=== PATIENT | female | born 1930 | race Caucasian/White ===

== ENCOUNTER 2018-03-18 03:16 | Inpatient (IN) | payer OTHER, MEDICARE ==
[~2018-03-18] VITALS: Ht 162.6 cm; Wt 71.7 kg
[2018-03-18] VITALS (18 sets, daily range): BP systolic 81–179; BP diastolic 34–80; PULSE 78–110; RESP 16–22; TEMP 96–99.9; O2SAT 95–100
[~2018-03-18 03:16] MED LIST: CARV3.125 PO; FERR324T4 PO; FURO20 PO; HYDR10TA16 PO; IRON PO; LEVO125T3 PO; MULTIVITAMIN PO; ST J81CH PO; SUCR1TAB; XANA0.5T
--- NOTE | 2018-03-18 03:46 | PD ---
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 Pt was found unresponsive and pulseless and give a total of 2mg of epinephrine and 1 sodium bicarb. ROSC was obtained. Pt was intubated in field. Daughter was at home with her and did not say that pt was DNI or DNR. Unable to obtain further details. 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 ) Musculoskeletal: Yes (CHRONIC BACK PAIN; LEFT HIP PAIN) Neurologic: No Psychiatric: Yes (ANXIETY ) Reproductive: No Respiratory: Yes (COPD; USES OXY AT HOME OCCAS NEEDED ) Thyroid Disease: Yes Tetanus Vaccination: Unknown Influenza Vaccination: No Menopausal: Yes Past Surgical History Surgical History: Unable to Obtain Abdominal Surgery: Yes (GALLBLADDER ) AICD: No Arteriovenous Shunt: No Body Medical Devices: REPLACEMENT OF AORTIC VALVE - BOVINE Cardiac Surgery: Yes (QUADRUPLE BYPASS,AORTIC HEART VALVE) Cholecystectomy: Yes Ear Surgery: No Endocrine Surgery: No Eye Surgery: No Genitourinary Surgery: No Gynecologic Surgery: No Insulin Pump: No Joint Replacement: No Neurologic Surgery: No Oral Surgery: No Pacemaker: No Thoracic Surgery: Yes Other Surgery: Yes (QUADRUPLE BYPASS,HEART VALVE,GALLBLADDER) Social History Tobacco Use: No Substance Use: No Allergies-Medications (Allergen,Severity, Reaction): Coded Allergies: penicillin G (Unverified Allergy, Severe, HIVES, 03/18/18) doxycycline (Unverified Allergy, Mild, Swelling, 03/18/18) lips became swollen and she had to take benedryl to treat the inflammation. minocycline (Unverified Allergy, Mild, Swelling, 03/18/18) lips became swollen and she had to take benedryl to treat the inflammation. tigecycline (Unverified Allergy, Mild, Swelling, 03/18/18) lips became swollen and she had to take benedryl to treat the inflammation. Reported Meds & Prescriptions Reported Meds & Active Scripts Active Reported B Complex (B-Complex Vitamins) 1 Cap 1 Cap PO DAILY Coq-10 (Coenzyme Q10 (Ubidecarenone)) 30 Mg Cap Aspir-Low (Aspirin) 81 Mg Tabdr Multiple Vitamin 1 Tab 1 Tab PO DAILY Vitamin C (Ascorbic Acid) 250 Mg Chew 250 Mg CHEW DAILY Levothyroxine (Levothyroxine Sodium) 75 Mcg Tab 75 Mcg PO DAILY Furosemide 40 Mg Tab 40 Mg PO BID Carvedilol 3.125 Mg Tab 3.125 Mg PO BID Review of Systems ROS Limitations: Unresponsive Physical Exam Narrative GENERAL: 88yo F unresponsive. SKIN: Focused skin assessment warm/dry. HEAD: Atraumatic. Normocephalic. EYES: Pupils equal and round at 2mm and sluggishly reactive. ENT: No nasal bleeding or discharge. Mucous membranes pink and moist. NECK: Trachea midline. No JVD. CARDIOVASCULAR: Regular rate and rhythm. No murmur appreciated. RESPIRATORY: No accessory muscle use. Clear to auscultation. Breath sounds equal bilaterally. GASTROINTESTINAL: Abdomen soft, non-tender, nondistended. MUSCULOSKELETAL: No obvious deformities. No clubbing. No cyanosis. No edema. NEUROLOGICAL: Unresponsive and not on any sedation. Data Data Last Documented VS Vital Signs Date Time Temp Pulse Resp B/P (MAP) Pulse Ox O2 Delivery O2 Flow Rate FiO2 03/18/18 04:13 75 85/54 03/18/18 04:07 16 100 Ventilator 100 03/18/18 03:21 96.0 Orders Orders Complete Blood Count With Diff (03/18/18 03:27) Basic Metabolic Panel (Bmp) (03/18/18 03:27) Magnesium (Mg) (03/18/18 03:27) Prothrombin Time / Inr (Pt) (03/18/18 03:41) Act Partial Throm Time (Ptt) (03/18/18 03:41) Chest, Single Ap (03/18/18 ) Resp Ventilation- Pressure (03/18/18 ) Ct Brain W/O Iv Contrast(Rout) (03/18/18 ) Troponin I (03/18/18 03:45) Norepinephrine-Dextrose Drip (Levophed-D (03/18/18 04:00) Terbutaline Inj (Brethine Inj) (03/18/18 04:00) Ct Pulmonary Angiogram (03/18/18 ) Norepinephrine-Dextrose Drip (Levophed-D (03/18/18 04:15) B-Type Natriuretic Peptide (03/18/18 04:17) Sodium Chlor 0.9% 1000 Ml Inj (Ns 1000 M (03/18/18 04:30) Admit Order (Ed Use Only) (03/18/18 04:33) Labs Laboratory Tests Test 03/18/18 03:45 White Blood Count 6.0 TH/MM3 Red Blood Count 3.10 MIL/MM3 Hemoglobin 9.3 GM/DL Hematocrit 29.9 % Mean Corpuscular Volume 96.5 FL Mean Corpuscular Hemoglobin 30.1 PG Mean Corpuscular Hemoglobin Concent 31.2 % Red Cell Distribution Width 14.5 % Platelet Count 183 TH/MM3 Mean Platelet Volume 8.8 FL Neutrophils (%) (Auto) 68.5 % Lymphocytes (%) (Auto) 21.2 % Monocytes (%) (Auto) 8.5 % Eosinophils (%) (Auto) 1.4 % Basophils (%) (Auto) 0.4 % Neutrophils # (Auto) 4.1 TH/MM3 Lymphocytes # (Auto) 1.3 TH/MM3 Monocytes # (Auto) 0.5 TH/MM3 Eosinophils # (Auto) 0.1 TH/MM3 Basophils # (Auto) 0.0 TH/MM3 CBC Comment AUTO DIFF Differential Total Cells Counted 100 Neutrophils % (Manual) 65 % Band Neutrophils % 3 % Lymphocytes % 16 % Monocytes % 12 % Eosinophils % 3 % Neutrophils # (Manual) 4.1 TH/MM3 Myelocytes 1 % Differential Comment FINAL DIFF MANUAL Platelet Estimate NORMAL Platelet Morphology Comment NORMAL Basophilic Stippling MOD Ovalocytes 1+ Prothrombin Time 11.7 SEC Prothromb Time International Ratio 1.2 RATIO Activated Partial Thromboplast Time 24.4 SEC Blood Urea Nitrogen 20 MG/DL Creatinine 1.21 MG/DL Random Glucose 165 MG/DL Calcium Level 9.1 MG/DL Magnesium Level 2.0 MG/DL Sodium Level 137 MEQ/L Potassium Level 4.2 MEQ/L Chloride Level 90 MEQ/L Carbon Dioxide Level 37.1 MEQ/L Anion Gap 10 MEQ/L Estimat Glomerular Filtration Rate 42 ML/MIN Troponin I 0.44 NG/ML B-Type Natriuretic Peptide 735 PG/ML MDM Medical Decision Making Medical Screen Exam Complete: Yes Emergency Medical Condition: Yes Interpretation(s) EKG: Afib at 94bpm. LAD. RBBB. Differential Diagnosis Massive PE vs. VA vs. hyperkalemia vs. hypokalemia Narrative Course 88yo F s/p PEA arrest. I discussed goals of care with her daughter who is here and her granddaughter who is an ICU nurse on the phone. They both agreed that if pt's heart was to stop, that they do not want CPR. Her granddaughter said she is ok with [address] scans to figure out the cause of the arrest. Labs reviewed, no leukocytosis. H/H low at 9.3/29.9 which is at baseline. Troponin elevated at 0.44. BUN/creatinine elevated at 1.21. BP was going down so given NS IVF and started on norepinephrine. Blood pressure has been stabled. Discussed with Dr. Funes and accepted to his service. Critical Care Narrative Aggregate critical care time was 45 minutes. Time to perform other separately billable procedures was not included in the critical care time. My time did not include minutes spent treating any other patients simultaneously or on activities that did not directly contribute to the patient's treatment. The services I provided to this patient were to treat and/or prevent clinically significant deterioration that could result in: cardiovascular collapse or . I provided critical care services requiring my management, as noted below: Chart data review, documentation time, medication orders and management, vital sign assessments/reviewing monitor data, ordering and reviewing lab tests, ordering and interpreting/reviewing x-rays and diagnostic studies, care of the patient and discussion of the patient with the admitting physicians. Diagnosis Primary Impression: PEA (Pulseless electrical activity) Admitting Information Admitting Physician Requests: Annie Clemente DO Mar 18, 2018 03:46
[2018-03-18 03:55] LABS: AUTOMATED NEUTROPHIL # 4.1 TH/MM3 (1.8-7.7); BASOPHIL % 0.4 % (0.0-2.0); EOSINOPHIL # 0.1 TH/MM3 (0-0.4); EOSINOPHIL % 1.4 % (0.0-4.0); HEMATOCRIT 29.9 % (35.0-46.0); HEMOGLOBIN 9.3 GM/DL (11.6-15.3); LYMPH % 21.2 % (9.0-44.0); LYMPHOCYTE # 1.3 TH/MM3 (1.0-4.8); MEAN CELL VOLUME 96.5 FL (80.0-100.0); MEAN CORPUSCULAR HEMOGLOBIN 30.1 PG (27.0-34.0); MEAN CORPUSCULAR HGB CONC 31.2 % (32.0-36.0); MEAN PLATELET VOLUME 8.8 FL (7.0-11.0); MONO % 8.5 % (0.0-8.0); MONOCYTE # 0.5 TH/MM3 (0-0.9); NEUT % 68.5 % (16.0-70.0); PLATELET COUNT 183 TH/MM3 (150-450); RED CELL DISTRIBUTION WIDTH 14.5 % (11.6-17.2)
[2018-03-18] MEDS ORDERED: TERBUTALINE INJ 1 MG/ML AMP SQ PRN (04:00)
[2018-03-18] MEDS ORDERED: NOREPINEPHRINE-DEXTROSE DRIP 250 ML IV PRN (04:00)
[2018-03-18 04:09] LABS: BICARBONATE 37.1 MEQ/L (21.0-32.0); CALCIUM 9.1 MG/DL (8.5-10.1); CREATININE 1.21 MG/DL (0.50-1.00); INTERNATIONAL NORMALIZED RATIO 1.2 RATIO; PROTHROMBIN TIME - PATIENT 11.7 SEC (9.8-11.6)
--- NOTE | 2018-03-18 04:10 | RADRPT ---
EXAM DATE: 03/18/2018 3:56 AM EDT AGE/SEX: 88 years / Female INDICATIONS: Post intubation. CLINICAL DATA: This is the patient's initial encounter. Patient reports that signs and symptoms have been present for 1 day and indicates a pain score of Nonresponsive. MEDICAL/SURGICAL HISTORY: Non-responsive. CABG. Left hip replacement. COMPARISON: POI, XR CHEST PA AND LAT, 12/31/2015. . FINDINGS: Endotracheal tube in good position. NG enters stomach. Bilateral mostly basilar airspace disease, rig ht greater than left. Cardiomegaly. CONCLUSION: Endotracheal tube and nasogastric tube in good position. Mild basilar airspace disease, right greater than left. Postoperative CABG with cardiomegaly present. Electronically signed by: Mart Glasgow MD 03/18/2018 4:08 AM EDT
[2018-03-18 04:13] LABS: TROPONIN I 0.44 NG/ML (0.02-0.05)
[2018-03-18] MEDS ORDERED: NOREPINEPHRINE 4 MG/D5W 250 ML IV PRN (04:15)
[2018-03-18] MEDS ORDERED: SODIUM CHLOR 0.9% 1000 ML INJ 1,000 ML IV ONE (04:30)
[2018-03-18 04:40] LABS: BANDS 3 % (0-6); LYMPHOCYTES 16 % (9-44); MONOCYTES 12 % (0-8); MYELOCYTES 1 % (0-0); NEUTROPHIL # MANUAL DIFF 4.1 TH/MM3 (1.8-7.7); POLYS (SEG NEUTROPHILS) 65 % (16-70)
[2018-03-18 04:42] LABS: OVALOCYTES 1+ (NORMAL)
--- NOTE | 2018-03-18 04:44 | HHI.HP ---
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 The patient was found unresponsive and pulseless and was given a total of 2mg of epinephrine and 1 sodium bicarb. ROSC was obtained. The patient was intubated in field. The ED attending to communicate with the patient's family and now patient is DNR. Review of Systems ROS Unable to obtain patient sedated and intubated Past Family Social History Allergies: Coded Allergies: penicillin G (Unverified Allergy, Severe, HIVES, 03/18/18) doxycycline (Unverified Allergy, Mild, Swelling, 03/18/18) lips became swollen and she had to take benedryl to treat the inflammation. minocycline (Unverified Allergy, Mild, Swelling, 03/18/18) lips became swollen and she had to take benedryl to treat the inflammation. tigecycline (Unverified Allergy, Mild, Swelling, 03/18/18) lips became swollen and she had to take benedryl to treat the inflammation. 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 CHF Anxiety CAD status post IN and CABG Hypertension Hypothyroidism Past Surgical History Hip replacement CABG Reported Medications Reported Meds & Active Scripts Active Active Prescriptions or Reported Medications Unobtainable Active Ordered Medications Current Medications Medications (Trade) Dose Ordered Sig/Hayder Route PRN Reason Start Time Stop Time Status Last Admin Dose Admin Terbutaline Sulfate (Brethine Inj) 1 mg UNSCH PRN SQ For Extravasation 03/18/18 04:00 Norepinephrine Bitartrate 250 ml @ 7.5 mls/hr TITRATE PRN IV Maintain MAP > 65 mmHg 03/18/18 04:15 03/18/18 04:13 Sodium Chloride 1,000 ml @ 999 mls/hr BOLUS ONCE IV 03/18/18 04:30 03/18/18 05:30 03/18/18 04:31 Sodium Chloride 1,000 ml @ 84 mls/hr [id number] IV 03/18/18 04:31 Sodium Chloride (NS Flush) 2 ml UNSCH PRN IV FLUSH FLUSH AFTER USING IV ACCESS 03/18/18 04:45 Sodium Chloride (NS Flush) 2 ml BID IV FLUSH 03/18/18 09:00 Acetaminophen (Tylenol) 650 mg Q6H PRN PO PAIN 1-5 AND/OR FEVER >101F 03/18/18 04:45 Morphine Sulfate (Morphine Inj) 2 mg Q2H PRN IV PUSH PAIN SCALE 6 TO 10 03/18/18 04:45 Famotidine (Pepcid Inj) 20 mg Q12HR IV PUSH 03/18/18 09:00 Midazolam HCl (Versed Inj) 2 mg Q1H PRN IV PUSH SEDATION 03/18/18 04:45 Artificial Tears (Tears Naturale Opth Soln) 1 drop TID EACH EYE 03/18/18 09:00 UNV Ondansetron HCl (Zofran Inj) 4 mg Q6H PRN IV PUSH NAUSEA OR VOMITING 03/18/18 04:45 UNV Albuterol/ Ipratropium (Duoneb Neb) 1 ampule Q2HR NEB PRN INH WHEEZING 03/18/18 04:45 UNV Heparin Sodium (Porcine) (Heparin Inj) 5,000 units Q8H SQ 03/18/18 05:00 Miscellaneous Information ([facility] [place] [facility]) 1 [id number] XX 03/18/18 04:45 Chlorhexidine Gluconate (Chlorhexidine 2% Cloth) 3 pack Taper DAILY@04 TOP 03/19/18 04:00 03/15/19 03:59 Chlorhexidine Gluconate (Chlorhexidine 2% Cloth) 3 pack UNSCH PRN TOP HYGIENIC CARE 03/18/18 04:45 Senna/Docusate Sodium (Hawa-Colace) 1 tab BID PO 03/18/18 09:00 Magnesium Hydroxide (Milk Of Magnesia Liq) 30 ml Q12H PRN PO Mild constipation 03/18/18 04:45 Sennosides (Senokot) 17.2 mg Q12H PRN PO Moderate constipation 03/18/18 04:45 Bisacodyl (Dulcolax Supp) 10 mg DAILY PRN RECTAL SEVERE CONSITIPATION/ IF NPO 03/18/18 04:45 Lactulose (Lactulose Liq) 30 ml DAILY PRN PO SEVERE CONSITIPATION/ IF PO 03/18/18 04:45 Chlorhexidine Gluconate (Peridex 0.12% Liq) 15 ml BID@08,20 MT 03/18/18 08:00 Propofol 100 ml @ 1.95 mls/hr TITRATE PRN IV SEDATION 03/18/18 04:45 Family History Unobtainable Social History Unobtainable Physical Exam Vital Signs Vital Signs Date Time Temp Pulse Resp B/P (MAP) Pulse Ox O2 Delivery O2 Flow Rate FiO2 03/18/18 04:36 78 16 131/63 (85) 100 Ventilator 100 03/18/18 04:13 75 85/54 03/18/18 04:07 79 16 84/45 (58) 100 Ventilator 100 03/18/18 03:54 81/34 (50) 03/18/18 03:48 102 16 100 Ventilator 100 03/18/18 03:30 101 16 90/55 (67) 100 Ventilator 100 03/18/18 03:24 100 03/18/18 03:21 96.0 89 18 132/80 (97) 97 Ventilator 100 03/18/18 03:15 100 100 Physical Exam GENERAL: Elderly female sedated and intubated SKIN: Warm and dry. HEAD: Normocephalic. EYES: No scleral icterus. No injection or drainage. NECK: Supple, trachea midline. No JVD or lymphadenopathy. CARDIOVASCULAR: Regular rate and rhythm without murmurs, gallops, or rubs. RESPIRATORY: Breath sounds equal bilaterally. No accessory muscle use. GASTROINTESTINAL: Abdomen soft, non-tender, nondistended. MUSCULOSKELETAL: No cyanosis, or edema. BACK: Nontender without obvious deformity. NEURO EXAM: Patient is unresponsive and mechanically ventilated. Laboratory Laboratory Tests Test 03/18/18 03:45 White Blood Count 6.0 Red Blood Count 3.10 Hemoglobin 9.3 Hematocrit 29.9 Mean Corpuscular Volume 96.5 Mean Corpuscular Hemoglobin 30.1 Mean Corpuscular Hemoglobin Concent 31.2 Red Cell Distribution Width 14.5 Platelet Count 183 Mean Platelet Volume 8.8 Neutrophils (%) (Auto) 68.5 Lymphocytes (%) (Auto) 21.2 Monocytes (%) (Auto) 8.5 Eosinophils (%) (Auto) 1.4 Basophils (%) (Auto) 0.4 Neutrophils # (Auto) 4.1 Lymphocytes # (Auto) 1.3 Monocytes # (Auto) 0.5 Eosinophils # (Auto) 0.1 Basophils # (Auto) 0.0 CBC Comment AUTO DIFF Differential Total Cells Counted 100 Neutrophils % (Manual) 65 Band Neutrophils % 3 Lymphocytes % 16 Monocytes % 12 Eosinophils % 3 Neutrophils # (Manual) 4.1 Myelocytes 1 Differential Comment FINAL DIFF MANUAL Platelet Estimate NORMAL Platelet Morphology Comment NORMAL Basophilic Stippling MOD Ovalocytes 1+ Prothrombin Time 11.7 Prothromb Time International Ratio 1.2 Activated Partial Thromboplast Time 24.4 Blood Urea Nitrogen 20 Creatinine 1.21 Random Glucose 165 Calcium Level 9.1 Magnesium Level 2.0 Sodium Level 137 Potassium Level 4.2 Chloride Level 90 Carbon Dioxide Level 37.1 Anion Gap 10 Estimat Glomerular Filtration Rate 42 Troponin I 0.44 Result Diagram: 03/18/18 0345 03/18/18 0345 Imaging Last 24 hours Impressions Chest X-Ray 03/18/18 0000 Signed Impressions: CONCLUSION: Endotracheal tube and nasogastric tube in good position. Mild basilar airspace disease, right greater than left. Postoperative CABG with cardiomegaly present. Caprini VTE Risk Assessment Caprini VTE Risk Assessment: Mod/High Risk (score >= 2) Caprini Risk Assessment Model Point Value = 1 Point Value = 2 Point Value = 3 Point Value = 5 Age 41-60 Minor surgery BMI > 25 kg/m2 Swollen legs Varicose veins or History of unexplained or recurrent spontaneous Oral contraceptives or hormone replacement Sepsis (< 1 month) Serious lung disease, including pneumonia (< 1 month) Abnormal pulmonary function Acute myocardial infarction Congestive heart failure (< 1 month) History of inflammatory bowel disease Medical patient at bed rest Age 61-74 Arthroscopic surgery Major open surgery (> 45 min) Laparoscopic surgery (> 45 min) Malignancy Confined to bed (> 72 hours) Immobilizing plaster cast Central venous access Age >= 75 History of VTE Family history of VTE Factor V Leiden Prothrombin [id number] Lupus anticoagulant Anticardiolipin antibodies Elevated serum homocysteine Heparin-induced thrombocytopenia Other congenital or acquired thrombophilia Stroke (< 1 month) Elective arthroplasty Hip, pelvis, or leg fracture Acute spinal cord injury (< 1 month) Prophylaxis Regimen Total Risk Factor Score Risk Level Prophylaxis Regimen 0-1 Low Early ambulation 2 Moderate Order ONE of the following: *Sequential Compression Device (SCD) *Heparin 5000 units SQ BID 3-4 Higher Order ONE of the following medications: *Heparin 5000 units SQ TID *Enoxaparin/Lovenox 40 mg SQ daily (WT < 150 kg, CrCl > 30 mL/min) *Enoxaparin/Lovenox 30 mg SQ daily (WT < 150 kg, CrCl > 10-29 mL/min) *Enoxaparin/Lovenox 30 mg SQ BID (WT < 150 kg, CrCl > 30 mL/min) AND/OR *Sequential Compression Device (SCD) 5 or more Highest Order ONE of the following medications: *Heparin 5000 units SQ TID (Preferred with Epidurals) *Enoxaparin/Lovenox 40 mg SQ daily (WT < 150 kg, CrCl > 30 mL/min) *Enoxaparin/Lovenox 30 mg SQ daily (WT < 150 kg, CrCl > 10-29 mL/min) *Enoxaparin/Lovenox 30 mg SQ BID (WT < 150 kg, CrCl > 30 mL/min) AND *Sequential Compression Device (SCD) Assessment and Plan Assessment and Plan Respiratory failure -Intubated for airway protection -No weaning until neurologically improved -Vent bundle -DuoNeb scheduled and as needed Cardiac arrest -DNR/not a candidate for hypothermia protocol -Series of troponins and EKG -Supportive care Hypertension -Hold home meds due to borderline blood pressure -Resume when indicated Acute kidney injury -Delgado in place. -Monitor intake and output. -Monitor electrolytes and replace as indicated. Chronic iron deficiency anemia -Monitor H&H -Transfuse for hemoglobin less than 7 Hypothyroidism -Continue Synthroid 75 mg p.o. daily DVT GI prophylaxis -Dean's and SCDs -Subcu heparin -Pepcid Critical Care: The total critical care time was 35 minutes. Time to perform other separately billable procedures was not included in the critical care time. Adebayo Funes MD Mar 18, 2018 4:44 am
[2018-03-18] MEDS ORDERED: RESP: ALBUTEROL 2.5 MG/IPRATROPIUM 0.5 MG NEB (PRN) INH (04:45)
[2018-03-18] MEDS ORDERED: ONDANSETRON ODT 4 MG TAB PO PRN (04:45)
[2018-03-18] MEDS ORDERED: ACETAMINOPHEN 325 MG TAB PO PRN (04:45)
[2018-03-18] MEDS ORDERED: MAGNESIUM HYDROXIDE SUSP 30 ML CUP PO PRN (04:45)
[2018-03-18] MEDS ORDERED: BISACODYL 10 MG SUPP RECTAL PRN (04:45)
[2018-03-18] MEDS ORDERED: NURSING INFORMATION XX SCH (04:45)
[2018-03-18] MEDS ORDERED: MORPHINE SULFATE 4 MG/ML INJ IV PUSH PRN (04:45)
[2018-03-18] MEDS ORDERED: CHLORHEXIDINE GLUCONATE 2 % 1 PACK (2 CLOTHS) TOP PRN (04:45)
[2018-03-18] MEDS ORDERED: SODIUM CHLORIDE 0.9% FLUSH 10 ML FLUSH IV FLUSH PRN (04:45)
[2018-03-18] MEDS ORDERED: LACTULOSE SYRUP 20 GM/30 ML CUP PO PRN (04:45)
[2018-03-18] MEDS ORDERED: SENNOSIDES 8.6 MG TAB PO PRN (04:45)
[2018-03-18] MEDS ORDERED: MIDAZOLAM HCL 2 MG/2 ML VIAL IV PUSH PRN (04:45)
[2018-03-18] MEDS ORDERED: CARV3.12 PO (04:52)
[2018-03-18] MEDS ORDERED: LEVO75TA3 PO (04:52)
[2018-03-18] MEDS ORDERED: LEVO125T4 PO (04:52)
[2018-03-18] MEDS ORDERED: FURO40TA PO (04:52)
[2018-03-18] MEDS ORDERED: VITACAP7 PO (04:54)
[2018-03-18] MEDS ORDERED: VITA250C3 CHEW (04:54)
[2018-03-18] MEDS ORDERED: ASPI81TA19 (04:54)
[2018-03-18] MEDS ORDERED: MULTTAB67 PO (04:54)
[2018-03-18] MEDS ORDERED: COQ-30CA2 (04:54)
[2018-03-18] MEDS: SODIUM CHLOR 0.9% 1000 ML INJ 1,000 ML IV SCH ×2 (05:15→16:26)
[2018-03-18] MEDS: HEPARIN SODIUM - SQ 10,000 UNITS/ML VIAL SQ SCH ×3 (05:15→21:57)
[2018-03-18] MEDS: PROPOFOL 1000 MG/100 ML INJ 100 ML IV PRN ×2 (05:27→21:58)
[2018-03-18 06:09] LABS: BACTERIA, URINE RARE /hpf; BILIRUBIN, URINE NEG (NEG); BLOOD, URINE NEG (NEG); GLUCOSE,URINE NEG (NEG); HYALINE CAST, URINE 10 /lpf (RARE); KETONE, URINE NEG (NEG); MUCUS URINE FEW /lpf (OCC); NITRITE,URINE NEG (NEG); PH, URINE 5.5 (5.0-8.5); SQUAMOUS EPITHELIAL CELL URINE <1 /hpf (0-5); URINE COLOR YELLOW (YELLW/STRAW); URINE LEUKOCYTE ESTERASE NEG (NEG)
[2018-03-18] MEDS ORDERED: IOHEXOL 350 MG/ML 10 ML VIAL (for RAD DIAG) IVCONTRAST ONE (06:29)
--- NOTE | 2018-03-18 06:48 | RADRPT ---
EXAM DATE: 03/18/2018 6:26 AM EDT AGE/SEX: 88 years / Female INDICATIONS: Altered mental status; post code. CLINICAL DATA: This is the patient's initial encounter. Patient reports that signs and symptoms have been present for 1 day and indicates a pain score of Nonresponsive. MEDICAL/SURGICAL HISTORY: Chronic obstructive pulmonary disease. Congestive heart failure. Renal disease. Anemia CABG. Cholecystectomy. Valve replacement RADIATION DOSE: 56.35 CTDI (mGy) COMPARISON: No prior exams available for comparison. TECHNIQUE: CT of the head without contrast. Using automated exposure control and adjustment of the mA and/or kV according to patient size, radiation dose was kept as low as reasonably achievable to ob tain optimal diagnostic quality images. FINDINGS: Cerebrum: The ventricles are normal for age. No evidence of midline shift, mass lesion, hemorrhage or acute infarction. No extraaxial fluid collections are seen. Posterior Fossa: The cerebellum and brainstem are intact. The 4th ventricle is midline. The cerebe llopontine angle is unremarkable. Extracranial: The visualized portion of the orbits is intact. There is opacification of the right ma xillary sinus. Skull: The calvaria is intact. No evidence of skull fracture. CONCLUSION: 1. No acute intracranial abnormality. Right maxillary sinus opacification. Electronically signed by: Mart Glasgow MD 03/18/2018 6:47 AM EDT
--- NOTE | 2018-03-18 06:54 | RADRPT ---
EXAM DATE: 03/18/2018 6:33 AM EDT AGE/SEX: 88 years / Female INDICATIONS: Post code; rule out pulmonary embolus. CLINICAL DATA: This is the patient's initial encounter. Patient reports that signs and symptoms have been present for 1 day and indicates a pain score of Nonresponsive. MEDICAL/SURGICAL HISTORY: Chronic obstructive pulmonary disease. Congestive heart failure. Renal disease. Anemia CABG. Cholecystectomy. Valve replacement RADIATION DOSE: 15.66 CTDI (mGy) COMPARISON: C, CHEST SINGLE AP, 03/18/2018. . TECHNIQUE: Volumetric scanning was performed using a multi-row detector CT scanner during bolus infu ross of 60 ml Omnipaque 350 (iohexol) nonionic water-soluble contrast as a single exam dose. The don a was post processed with a variety of visualization algorithms including full volume maximum intensi ty projection and sliding thin slab reformation. Using automated exposure control and adjustment of the mA and/or kV according to patient size, radiation dose was kept as low as reasonably achievable t o obtain optimal diagnostic quality images. FINDINGS: No filling defects to suggest pulmonary embolic disease. There is a small right-sided pleural effusio n no significant left effusion. There is mild emphysema. Subsegmental airspace disease present at the lung bases most characteristic of atelectasis. Borderline enlarged mediastinal lymph nodes. Severe coronary artery calcifications. Heart size mildly enlarged. No acute findings in the upper abdomen. Mild anasarca. Previous proximal left humerus frac ture. CONCLUSION: 1. Negative for pulmonary embolus. 2. Endotracheal tube tip just above the gurwinder. NG enters stomach. 3. Small right effusion and trace left pleural fluid with subsegmental atelectasis in both lungs. Mi ld emphysema. 4. Severe coronary calcifications. Electronically signed by: Mart Glasgow MD 03/18/2018 6:52 AM EDT
[2018-03-18] MEDS: SODIUM CHLORIDE 0.9% FLUSH 10 ML FLUSH IV FLUSH SCH ×2 (09:00→21:56)
[2018-03-18] MEDS ORDERED: RESP: ALBUTEROL 2.5 MG/3 ML NEB (PRN) NEB (09:15)
--- NOTE | 2018-03-18 09:19 | HHI.CCPN ---
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 The patient was found unresponsive and pulseless and was given a total of 2mg of epinephrine and 1 sodium bicarb. ROSC was obtained. The patient was intubated in field. The ED attending to communicate with the patient's family and now patient is DNR. Subjective: 03/18 Daughter states patient has been going downhill since fractured left arm in December. She has been admitted to [facility] times since then with hyponatremia and delirium and then most recently admitted with CHF ~ 1month ago. She has been living at home in an apartment but her family has been taking turns staying with her and they have also hired [employer] and had PT and home health coming. She began declining since with intermittent confusion and difficulty breathing. She began crying out for help saying that she could not breath. A neighbor who is a nurse came and noted she had a faint pulse and then lost a pulse and she became unresponsive. Bystander CPR was not initiated. She was pulseless with EVAC arrived and CPR was initiated. She has an advanced directive that limits measures that prolong dying process in setting of vegetative state, end stage condition, terminal condition. At this time, family does not have Healthcare surrogate form but they are trying to find it. No living spouse. She has 5 children. Daughter states her quality of life has been poor since December, good long-term memory, difficulty with short- term memory. She is CO2 retainer, suspect hypercapneic respiratory failure was etiology of arrest. Brainstem reflexes are intact but no purposeful motor activity. Objective Vital Signs Date Time Temp Pulse Resp B/P (MAP) Pulse Ox O2 Delivery O2 Flow Rate FiO2 03/18/18 06:10 100 100 03/18/18 05:57 03/18/18 05:39 80 16 Ventilator 03/18/18 03:21 96.0 Result Diagram: 03/18/18 0345 03/18/18 0345 Other Results Laboratory Tests Test 03/18/18 08:20 Blood Gas Puncture Site LT RADIAL Blood Gas Patient Temperature 98.6 Blood Gas HCO3 41 mmol/L (22-26) Blood Gas Base Excess 16.1 mmol/L (-2-2) Blood Gas Oxygen Saturation 97 % (90-100) Arterial Blood pH 7.46 (7.380-7.420) Arterial Blood Partial Pressure CO2 58 mmHg (38-42) Arterial Blood Partial Pressure O2 175 mmHg (61-120) Arterial Blood Oxygen Content 12.1 Vol % (12.0-20.0) Arterial Blood Carboxyhemoglobin 1.4 % (0-4) Arterial Blood Methemoglobin 1.2 % (0-2) Blood Gas Hemoglobin 8.6 G/DL (12.0-16.0) Oxygen Delivery Device VENTILATOR Blood Gas Ventilator Setting [facility]/AC500/16 Blood Gas Inspired Oxygen 50 % Imaging Last 24 hours Impressions Chest X-Ray 03/18/18 0000 Signed Impressions: CONCLUSION: Endotracheal tube and nasogastric tube in good position. Mild basilar airspace disease, right greater than left. Postoperative CABG with cardiomegaly present. Objective Remarks GENERAL: Elderly female intubate. SKIN: Warm and dry. HEAD: Normocephalic. EYES: No scleral icterus. No injection or drainage. NECK: Supple, trachea midline. No JVD or lymphadenopathy. CARDIOVASCULAR: irregularly irregular, rate 90s without murmurs, gallops, or rubs. RESPIRATORY: Breath sounds equal bilaterally. No accessory muscle use. GASTROINTESTINAL: Abdomen soft, non-tender, nondistended. Bowel sound present. MUSCULOSKELETAL: No cyanosis, 1+ bipedal edema. NEURO EXAM: Pupils pinpoint and sluggishly reactive bilaterally. Corneal reflexes intact. Oculocephalic reflexes intact, positive gag, positive cough, spontaneous respirations. Babinski is upgoing and she has a flexor response to noxious stimuli of BLE. No motor response to deep central noxious stimuli. A/P Assessment and Plan NEURO: Acute encephalopathy, possible anoxia CT brain no acute abnormality RESP: Acute hypercapnic respiratory failure Emphysema Intubated 03/18. Ventilator bundle DuoNeb every 4 hours. Albuterol every 2 hours as needed CV: PEA cardiac arrest Right bundle branch block Left anterior fascicular block Chronic systolic heart failure Coronary artery disease with prior CABG Atrial fibrillation Serial EKG and cardiac markers Continue aspirin 81 mg daily Not requiring vasopressors. Now hypertensive. Hydralazine as needed. GI: OG tube in place FEN/RENAL: Acute kidney injury Delgado in place. Monitor intake and output. Monitor elect lites. Replace as indicated. ID: No leukocytosis or fever. Follow-up urine culture Levaquin 500 mg daily in view of COPD exacerbation. HEME: Chronic iron deficiency anemia MSK: Proximal left humerus fracture; subacute ENDO: Hypothyroidism Continue Synthroid 75 mg p.o. daily PROPH: SCDs for DVT prophylaxis. Heparin subcu for DVT prophylaxis. Famotidine for stress ulcer prophylaxis ACCESS: Peripheral IV providing adequate access at this time Met with family and reviewed advanced directives with them. Multiple questions answered. Amanda Mansfield MD Mar 18, 2018 09:19
[2018-03-18] MEDS: hydrALAZINE HCL 20 MG/ML VIAL IV PUSH PRN ×2 (09:44→18:32)
[2018-03-18] MEDS: LEVOTHYROXINE SODIUM 75 MCG TAB PO SCH (09:44)
[2018-03-18] MEDS: ASPIRIN 81 MG CHEW TAB OG-TUBE SCH (09:44)
[2018-03-18] MEDS: FAMOTIDINE 20 MG/2 ML VIAL IV PUSH SCH ×2 (09:44→21:57)
[2018-03-18] MEDS: DOCUSATE SODIUM 50 MG/SENNA 8.6 MG TAB PO SCH ×2 (09:44→21:57)
[2018-03-18] MEDS: CHLORHEXIDINE 0.12% (ORAL KIT) 15 ML CUP MT SCH ×2 (09:50→21:56)
[2018-03-18] MEDS: ARTIFICIAL TEARS OPTH SOLN 15 ML BTL EACH EYE SCH ×3 (09:50→17:51)
[2018-03-18] MEDS ORDERED: LEVOFLOXACIN 500 MG PREMIX INJ 100 ML IV ONE (10:00)
[2018-03-18] MEDS: RESP: ALBUTEROL 2.5 MG/IPRATROPIUM 0.5 MG NEB (SCH) NEB ×3 (10:41→21:00)
--- NOTE | 2018-03-18 14:41 | EKG ---
Date Performed: 03/18/2018 Time Performed: 11:12:04 PTAGE: 88 years EKG: ATRIAL FIBRILLATION WITH ABERRANT CONDUCTION OR VENTRICULAR PREMATURE COMPLEXES MARKED LEFT AXIS DEVIATION ABNORMAL ECG PREVIOUS TRACING : 03/18/2018 03.19 Since the previous tracing, no significant change noted DOCTOR: Jovani Boss Interpretating Date/Time 03/18/2018 14:39:41
--- NOTE | 2018-03-18 14:52 | EKG ---
Date Performed: 03/18/2018 Time Performed: 03:19:46 PTAGE: 88 years EKG: ATRIAL FIBRILLATION RIGHT BUNDLE BRANCH BLOCK LEFT ANTERIOR FASCICULAR BLOCK ABNORMAL ECG PREVIOUS TRACING : 01/24/2012 09.27 COMPARED WITH PREVIOUS EKG VENTRICULAR PACEMAKER RHYTHM IS NO LONGER PRESENT DOCTOR: Jovani Boss Interpretating Date/Time 03/18/2018 14:51:59
[2018-03-19] VITALS (19 sets, daily range): BP systolic 127–179; BP diastolic 61–79; PULSE 90–114; RESP 16–22; TEMP 98–99; O2SAT 95–100
[2018-03-19] MEDS: RESP: ALBUTEROL 2.5 MG/IPRATROPIUM 0.5 MG NEB (SCH) NEB ×7 (00:10→23:51)
[2018-03-19] MEDS: CHLORHEXIDINE GLUCONATE 2 % 1 PACK (2 CLOTHS) TOP SCH (04:00)
[2018-03-19] MEDS: HEPARIN SODIUM - SQ 10,000 UNITS/ML VIAL SQ SCH ×3 (04:16→21:46)
[2018-03-19] MEDS: PROPOFOL 1000 MG/100 ML INJ 100 ML IV PRN (04:16)
[2018-03-19 04:20] LABS: AUTOMATED NEUTROPHIL # 5.1 TH/MM3 (1.8-7.7); BASOPHIL % 0.3 % (0.0-2.0); HEMATOCRIT 24.8 % (35.0-46.0); HEMOGLOBIN 8.1 GM/DL (11.6-15.3); LYMPH % 10.3 % (9.0-44.0); LYMPHOCYTE # 0.7 TH/MM3 (1.0-4.8); MEAN CELL VOLUME 92.4 FL (80.0-100.0); MEAN CORPUSCULAR HEMOGLOBIN 30.2 PG (27.0-34.0); MEAN CORPUSCULAR HGB CONC 32.7 % (32.0-36.0); MEAN PLATELET VOLUME 8.7 FL (7.0-11.0); MONO % 17.2 % (0.0-8.0); MONOCYTE # 1.2 TH/MM3 (0-0.9); NEUT % 72.2 % (16.0-70.0); PLATELET COUNT 152 TH/MM3 (150-450); RED BLOOD COUNT 2.68 MIL/MM3 (4.00-5.30); RED CELL DISTRIBUTION WIDTH 14.5 % (11.6-17.2); WHITE BLOOD COUNT 7.1 TH/MM3 (4.0-11.0)
[2018-03-19] MEDS: SODIUM CHLOR 0.9% 1000 ML INJ 1,000 ML IV SCH ×2 (04:21→21:08)
[2018-03-19 04:38] LABS: INTERNATIONAL NORMALIZED RATIO 1.3 RATIO; PROTHROMBIN TIME - PATIENT 13.1 SEC (9.8-11.6)
[2018-03-19] MEDS: LEVOTHYROXINE SODIUM 75 MCG TAB PO SCH (04:48)
[2018-03-19 04:50] LABS: ALBUMIN 2.7 GM/DL (3.4-5.0); AST (GOT) 37 U/L (15-37); BICARBONATE 34.2 MEQ/L (21.0-32.0); BLOOD UREA NITROGEN 24 MG/DL (7-18); CALCIUM 8.5 MG/DL (8.5-10.1); CHLORIDE 97 MEQ/L (98-107); CREATININE 1.27 MG/DL (0.50-1.00); GLOMERULAR FILTRATION RATE 40 ML/MIN (>89); GLUCOSE,RANDOM 84 MG/DL (74-106); MAGNESIUM 1.6 MG/DL (1.5-2.5); SODIUM (NA) 141 MEQ/L (136-145)
[2018-03-19 04:53] LABS: ALKALINE PHOSPHATASE 76 U/L (45-117); ALT (GPT) 28 U/L (10-53); PHOSPHORUS 1.9 MG/DL (2.5-4.9); TOTAL BILIRUBIN ADULT 0.6 MG/DL (0.2-1.0)
[2018-03-19] MEDS: hydrALAZINE HCL 20 MG/ML VIAL IV PUSH PRN ×2 (05:44→22:55)
[2018-03-19] MEDS ORDERED: POTASSIUM CHLOR 20 MEQ PREMIX 100 ML IV PRN (07:00)
[2018-03-19] MEDS ORDERED: SODIUM PHOSPHATE INJ 30 MMOL in SODIUM CHLOR 0.9% 250 ML INJ 240 ML IV PRN (07:00)
[2018-03-19] MEDS ORDERED: POTASSIUM CHLOR 40 MEQ PREMIX 100 ML IV PRN ×2 (07:00)
[2018-03-19] MEDS ORDERED: POTASSIUM PHOSPHATE INJ 30 MMOL in SODIUM CHLOR 0.9% 250 ML INJ 250 ML IV PRN (07:00)
[2018-03-19] MEDS ORDERED: MAGNESIUM SULFATE INJ 2 GM in SODIUM CHLORIDE 0.9% INJ 96 ML IV PRN (07:00)
[2018-03-19] MEDS ORDERED: POTASSIUM CHLORIDE 25 MEQ EFFERVESCENT TAB PO PRN (07:00)
[2018-03-19] MEDS ORDERED: MAGNESIUM OXIDE 400 MG TAB PO PRN (07:00)
[2018-03-19] MEDS ORDERED: MAGNESIUM SULFATE INJ 4 GM in SODIUM CHLORIDE 0.9% INJ 92 ML IV PRN (07:00)
[2018-03-19] MEDS ORDERED: POTASSIUM PHOSPHATE MONOBASIC 500 MG TAB PO/TUBE PRN (07:00)
[2018-03-19] MEDS ORDERED: POTASSIUM CHLORIDE 25 MEQ EFFERVESCENT TAB OG-TUBE ONE (07:00)
[2018-03-19] MEDS ORDERED: POTASSIUM PHOSPHATE MONOBASIC 500 MG TAB PO PRN (07:00)
[2018-03-19] MEDS: ASPIRIN 81 MG CHEW TAB OG-TUBE SCH (09:02)
[2018-03-19] MEDS: DOCUSATE SODIUM 50 MG/SENNA 8.6 MG TAB PO SCH ×2 (09:02→21:46)
[2018-03-19] MEDS: LEVOFLOXACIN 250 MG PREMIX INJ 50 ML IV SCH (09:03)
[2018-03-19] MEDS: FAMOTIDINE 20 MG/2 ML VIAL IV PUSH SCH ×2 (09:03→21:46)
[2018-03-19] MEDS: SODIUM CHLORIDE 0.9% FLUSH 10 ML FLUSH IV FLUSH SCH ×2 (09:03→21:47)
[2018-03-19] MEDS: CHLORHEXIDINE 0.12% (ORAL KIT) 15 ML CUP MT SCH ×2 (09:08→20:00)
[2018-03-19] MEDS: ARTIFICIAL TEARS OPTH SOLN 15 ML BTL EACH EYE SCH ×3 (09:09→17:27)
--- NOTE | 2018-03-19 09:22 | HHI.CCPN ---
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 The patient was found unresponsive and pulseless and was given a total of 2mg of epinephrine and 1 sodium bicarb. ROSC was obtained. The patient was intubated in field. The ED attending to communicate with the patient's family and now patient is DNR. 03/18 Daughter states patient has been going downhill since fractured left arm in December. She has been admitted to [facility] times since then with hyponatremia and delirium and then most recently admitted with CHF ~ 1month ago. She has been living at home in an apartment but her family has been taking turns staying with her and they have also hired [employer] and had PT and home health coming. She began declining since with intermittent confusion and difficulty breathing. She began crying out for help saying that she could not breath. A neighbor who is a nurse came and noted she had a faint pulse and then lost a pulse and she became unresponsive. Bystander CPR was not initiated. She was pulseless with EVAC arrived and CPR was initiated. She has an advanced directive that limits measures that prolong dying process in setting of vegetative state, end stage condition, terminal condition. At this time, family does not have Healthcare surrogate form but they are trying to find it. No living spouse. She has 5 children. Daughter states her quality of life has been poor since December, good long-term memory, difficulty with short- term memory. She is CO2 retainer, suspect hypercapneic respiratory failure was etiology of arrest. Brainstem reflexes are intact but no purposeful motor activity. Subjective: 03/19 Suspect patient was developing progressive CO2 retention at home as a side effect of aggressive diuresis for advanced heart failure. Multiple hospitalizations in the last few months demonstrate trajectory of decline. 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 Discussed condition in detail with daughter and granddaughter and multiple questions answered. They would like to convene multiple family members for me to convey this information "so they all can hear it". Granddaughter will try to help assemble family members for some time today however if unable to convene today, will meet with palliative care tomorrow. Family has requested input of neurology as well, though her cardiopulmonary status plays just as significant role in prognosis. Objective Vital Signs Date Time Temp Pulse Resp B/P (MAP) Pulse Ox O2 Delivery O2 Flow Rate FiO2 03/19/18 08:30 97 35 03/19/18 06:00 105 03/19/18 04:00 99.0 22 127/61 (83) 03/18/18 05:39 Ventilator Intake and Output 03/19/18 03/19/18 03/20/18 08:00 16:00 00:00 Intake Total 1100 ml Output Total 250 ml Balance 850 ml Result Diagram: 03/19/18 0322 03/19/18 0322 Imaging Last 24 hours Impressions Chest X-Ray 03/18/18 0000 Signed Impressions: CONCLUSION: Endotracheal tube and nasogastric tube in good position. Mild basilar airspace disease, right greater than left. Postoperative CABG with cardiomegaly present. Objective Remarks GENERAL: Elderly frail-appearing female who is intubated. SKIN: Warm and dry. HEAD: Normocephalic. EYES: No scleral icterus. No injection or drainage. NECK: Supple, trachea midline. CARDIOVASCULAR: irregularly irregular, rate 90s without murmurs, gallops, or rubs. RESPIRATORY: Breath sounds distant bilaterally. No wheezes or rales no accessory muscle use. GASTROINTESTINAL: Abdomen soft, non-tender, nondistended. Bowel sound present. MUSCULOSKELETAL: No cyanosis, 1+ bipedal edema. NEURO EXAM: Pupils pinpoint and sluggishly reactive bilaterally. Corneal reflexes intact. Oculocephalic reflexes intact, positive gag, positive cough, spontaneous respirations. Babinski is upgoing and she has a flexor response to noxious stimuli of BLE. No motor response to deep central noxious stimuli. A/P Assessment and Plan Anoxic encephalopathy Has been on propofol for vent synchrony. Sedation vacation for neuro assessment Consult neurology as family specific request their input regarding neurologic prognosis EEG pending Acute hypercapnic respiratory failure Emphysema COPD Prior tobacco abuse -Intubated for airway protection -Mental status precludes extubation. -Vent bundle -DuoNeb scheduled and as needed Levaquin 500 mg IV daily for coverage of atypical/community-acquired organisms insetting severe COPD exacerbation PEA cardiac arrest, suspect it was secondary to COPD exacerbation with hypercapnic respiratory failure Chronic systolic heart failure Coronary artery disease with prior CABG NSTEMI Atrial fibrillation -DNR/not a candidate for hypothermia protocol -Series of troponins and EKG -ASA 81 mg daily. Off levophed -Metoprolol 12.5 bid. Acute kidney injury -Delgado in place. -Monitor intake and output. -Monitor electrolytes and replace as indicated. Chronic iron deficiency anemia -Monitor H&H -Transfuse for hemoglobin less than 7 Hypothyroidism -Continue Synthroid 75 mg p.o. daily DVT GI prophylaxis -Dean's and SCDs -Subcu heparin -Pepcid Level 3 follow-up Amanda Mansfield MD Mar 19, 2018 09:22
--- NOTE | 2018-03-19 15:33 | MB ---
cc: Wayne Washburn MD, PhD DATE: 03/19/2018 REASON FOR CONSULTATION: Anoxic encephalopathy. HISTORY OF PRESENT ILLNESS: Ms. Cevallos is an 88-year-old female status post cardiac arrest after she was found unresponsive early in the morning. She has not been responsive. There has been no seizure activity. No tonic-clonic activity. CURRENT MEDICATIONS: 1. Pepcid. 2. Potassium chloride. 3. Magnesium oxide. 4. Albuterol nebulizer. 5. Synthroid. 6. [place]a-Colace. 7. Aspirin. 8. Apresoline. 9. Subcutaneous heparin. 10.Morphine p.r.n. NEUROLOGIC: Blood pressure is 133/72, pulse is 90, respirations 16, temperature 98 degrees. Higher cortical function: She is nonresponsive to verbal stimulation. Does not follow commands. Pupils are 2 mm and reactive. Extraocular movements are intact. She has sustained upgaze. MOTOR EXAM: There is no withdrawal, no posturing. Reflexes are symmetric. IMAGING: CT brain unremarkable. LABORATORY DATA: The white count is 7100, hemoglobin 8.1, hematocrit 24.8%, platelet count 152,000. PT 13.1, INR 1.38, PTT 28.5. Sodium is 141, potassium 3.4, chloride 97, CO2 of 34.2. The BUN is 24, creatinine 1.27, GFR is 40, glucose 84. IMPRESSION: Severe anoxic encephalopathy. Prognosis is guarded. RECOMMENDATIONS: We will obtain an EEG, which will be helpful prognostically. Wayne Washburn MD, PhD PING/TL , 02:39 PM , 03:32 PM
[2018-03-19] MEDS: NYSTATIN 100,000 U/GM PWD 15 GM BTL TOPICAL SCH ×2 (17:27→21:55)
[2018-03-19] MEDS ORDERED: METOPROLOL TARTRATE 25 MG TAB PO SCH (21:30)
[2018-03-20] VITALS (13 sets, daily range): BP systolic 155–176; BP diastolic 70–84; PULSE 91–108; RESP 16; TEMP 98.9–99.4; O2SAT 78–98
[2018-03-20] MEDS: CHLORHEXIDINE GLUCONATE 2 % 1 PACK (2 CLOTHS) TOP SCH (03:23)
[2018-03-20] MEDS: hydrALAZINE HCL 20 MG/ML VIAL IV PUSH PRN ×2 (03:24→09:04)
[2018-03-20] MEDS: RESP: ALBUTEROL 2.5 MG/IPRATROPIUM 0.5 MG NEB (SCH) NEB ×3 (03:26→11:37)
[2018-03-20] MEDS: SODIUM CHLOR 0.9% 1000 ML INJ 1,000 ML IV SCH (04:11)
[2018-03-20] MEDS: HEPARIN SODIUM - SQ 10,000 UNITS/ML VIAL SQ SCH ×2 (05:36→12:53)
[2018-03-20] MEDS: LEVOTHYROXINE SODIUM 75 MCG TAB PO SCH (05:36)
[2018-03-20 07:40] LABS: AUTOMATED NEUTROPHIL # 6.7 TH/MM3 (1.8-7.7); BASOPHIL % 0.2 % (0.0-2.0); EOSINOPHIL % 0.4 % (0.0-4.0); HEMATOCRIT 25.6 % (35.0-46.0); HEMOGLOBIN 8.4 GM/DL (11.6-15.3); LYMPH % 6.5 % (9.0-44.0); LYMPHOCYTE # 0.5 TH/MM3 (1.0-4.8); MEAN CELL VOLUME 92.4 FL (80.0-100.0); MEAN CORPUSCULAR HEMOGLOBIN 30.2 PG (27.0-34.0); MEAN CORPUSCULAR HGB CONC 32.7 % (32.0-36.0); MEAN PLATELET VOLUME 8.8 FL (7.0-11.0); MONO % 11.6 % (0.0-8.0); NEUT % 81.3 % (16.0-70.0); PLATELET COUNT 145 TH/MM3 (150-450); RED BLOOD COUNT 2.78 MIL/MM3 (4.00-5.30); WHITE BLOOD COUNT 8.3 TH/MM3 (4.0-11.0)
[2018-03-20] MEDS ORDERED: GLUCAGON 1 MG/ML VIAL OTHER PRN (08:00)
[2018-03-20] MEDS: INSULIN NovoLIN REGULAR SUPPLEMENTAL SCALE SQ SCH ×2 (08:00→14:00)
[2018-03-20] MEDS: PROPOFOL 1000 MG/100 ML INJ 100 ML IV PRN (08:00)
[2018-03-20] MEDS ORDERED: DEXTROSE 50% IN WATER 50 ML VIAL(D50) IV PUSH PRN (08:00)
--- NOTE | 2018-03-20 08:15 | HHI.CCPN ---
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 The patient was found unresponsive and pulseless and was given a total of 2mg of epinephrine and 1 sodium bicarb. ROSC was obtained. The patient was intubated in field. The ED attending to communicate with the patient's family and now patient is DNR. 03/18 Daughter states patient has been going downhill since fractured left arm in December. She has been admitted to [facility] 3 times since then with hyponatremia and delirium and then most recently admitted with CHF ~ 1month ago. She has been living at home in an apartment but her family has been taking turns staying with her and they have also hired [employer] and had PT and home health coming. She began declining since with intermittent confusion and difficulty breathing. She began crying out for help saying that she could not breath. A neighbor who is a nurse came and noted she had a faint pulse and then lost a pulse and she became unresponsive. Bystander CPR was not initiated. She was pulseless with EVAC arrived and CPR was initiated. She has an advanced directive that limits measures that prolong dying process in setting of vegetative state, end stage condition, terminal condition. At this time, family does not have Healthcare surrogate form but they are trying to find it. No living spouse. She has 5 children. Daughter states her quality of life has been poor since December, good long-term memory, difficulty with short- term memory. She is CO2 retainer, suspect hypercapneic respiratory failure was etiology of arrest. Brainstem reflexes are intact but no purposeful motor activity. Subjective: 03/19 Suspect patient was developing progressive CO2 retention at home as a side effect of aggressive diuresis for advanced heart failure. Multiple hospitalizations in the last few months demonstrate trajectory of decline. 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 Discussed condition in detail with daughter and granddaughter and multiple questions answered. They would like to convene multiple family members for me to convey this information "so they all can hear it". Granddaughter will try to help assemble family members for some time today however if unable to convene today, will meet with palliative care tomorrow. Family has requested input of neurology as well, though her cardiopulmonary status plays just as significant role in prognosis. 03/20 Patient is sedated with Diprivan and intubated. Afebrile. Objective Vital Signs Date Time Temp Pulse Resp B/P (MAP) Pulse Ox O2 Delivery O2 Flow Rate FiO2 03/20/18 06:00 93 03/20/18 04:29 96 35 03/20/18 04:00 98.9 16 155/76 (102) 03/18/18 05:39 Ventilator Intake and Output 03/20/18 03/20/18 03/21/18 08:00 16:00 00:00 Intake Total 60 ml Output Total 450 ml Balance -390 ml Result Diagram: 03/20/18 0637 03/19/18 0322 Other Results Laboratory Tests Test 03/20/18 06:37 White Blood Count 8.3 TH/MM3 Red Blood Count 2.78 MIL/MM3 Hemoglobin 8.4 GM/DL Hematocrit 25.6 % Mean Corpuscular Volume 92.4 FL Mean Corpuscular Hemoglobin 30.2 PG Mean Corpuscular Hemoglobin Concent 32.7 % Red Cell Distribution Width 15.0 % Platelet Count 145 TH/MM3 Mean Platelet Volume 8.8 FL Neutrophils (%) (Auto) 81.3 % Lymphocytes (%) (Auto) 6.5 % Monocytes (%) (Auto) 11.6 % Eosinophils (%) (Auto) 0.4 % Basophils (%) (Auto) 0.2 % Neutrophils # (Auto) 6.7 TH/MM3 Lymphocytes # (Auto) 0.5 TH/MM3 Monocytes # (Auto) 1.0 TH/MM3 Eosinophils # (Auto) 0.0 TH/MM3 Basophils # (Auto) 0.0 TH/MM3 CBC Comment DIFF FINAL Differential Comment Imaging Last Impressions Head CT 03/18/18 Signed Impressions: CONCLUSION: 1. No acute intracranial abnormality. Right maxillary sinus opacification. Chest X-Ray 03/18/18 Signed Impressions: CONCLUSION: Endotracheal tube and nasogastric tube in good position. Mild basilar airspace disease, right greater than left. Postoperative CABG with cardiomegaly present. CT Angiography 03/18/18 Signed Impressions: CONCLUSION: 1. Negative for pulmonary embolus. 2. Endotracheal tube tip just above the gurwinder. NG enters stomach. 3. Small right effusion and trace left pleural fluid with subsegmental atelect asis in both lungs. Mild emphysema. 4. Severe coronary calcifications. Objective Remarks GENERAL: Elderly frail-appearing female who is intubated. SKIN: Warm and dry. HEAD: Normocephalic. EYES: No scleral icterus. No injection or drainage. NECK: Supple, trachea midline. CARDIOVASCULAR: irregularly irregular, rate 90s without murmurs, gallops, or rubs. RESPIRATORY: Breath sounds distant bilaterally. No wheezes or rales no accessory muscle use. GASTROINTESTINAL: Abdomen soft, non-tender, nondistended. Bowel sound present. MUSCULOSKELETAL: No cyanosis, 1+ bipedal edema. NEURO EXAM: Pupils pinpoint and sluggishly reactive bilaterally. Corneal reflexes intact. Oculocephalic reflexes intact, positive gag, positive cough, spontaneous respirations. Babinski is upgoing and she has a flexor response to noxious stimuli of BLE. No motor response to deep central noxious stimuli. A/P Assessment and Plan Neuro: Anoxic encephalopathy Monitor neuro status. On Diprivan infusion for sedation. Daily sedation vacation. Neuro is following- Dr. Washburn Follow up on EEG Pulm: Acute hypercapnic respiratory failure Emphysema COPD Prior tobacco abuse Continue with vent support keep sats >92% -Intubated for airway protection -Mental status precludes extubation. -Vent bundle -DuoNeb scheduled and as needed Levaquin 500 mg IV daily for coverage of atypical/community-acquired organisms insetting severe COPD exacerbation CV: PEA cardiac arrest, suspect it was secondary to COPD exacerbation with hypercapnic respiratory failure Chronic systolic heart failure Coronary artery disease with prior CABG NSTEMI Atrial fibrillation -DNR/not a candidate for hypothermia protocol -Monitor HR and BP keep MAP>65mmHg -ASA 81 mg daily, increase Metoprolol 25mg bid. : Mild Acute kidney injury Cr:1.27 yesterday, UOP: 450ml in 12 hrs. On NS@84ml/hr Monitor renal function, I/O's, electrolytes replacement as needed. Avoid nephrotoxins GI: Start tube feeds-Glucerna 1.5 with goal rate 50ml/hr On Pepcid 10mg IV Q12 ID: Continue with abx ( Levaquin)monitor for signs of infections ( Fever, WBC) Endo: SSI to maintain Euglycemia On Synthroid mcg daily Heme: Chronic iron deficiency anemia -Monitor CBC Hypothyroidism -Continue Synthroid 75 mg p.o. daily DVT GI prophylaxis -Dean's and SCDs -Subcu heparin -Pepcid Palliative care met with family and they elected to withdrawal life support and transition to comfort care. Level 3 follow-up Justin Zapien MD Mar 20, 2018 08:15
[2018-03-20 08:18] LABS: BICARBONATE 28.6 MEQ/L (21.0-32.0); CALCIUM 8.4 MG/DL (8.5-10.1); CREATININE 1.07 MG/DL (0.50-1.00)
[2018-03-20] MEDS ORDERED: METOPROLOL TARTRATE 25 MG TAB PO SCH (09:00)
[2018-03-20] MEDS: FAMOTIDINE 20 MG/2 ML VIAL IV PUSH SCH (09:01)
[2018-03-20] MEDS: POTASSIUM CHLOR 20 MEQ PREMIX 100 ML IV PRN ×4 (09:01→14:59)
[2018-03-20] MEDS: DOCUSATE SODIUM 50 MG/SENNA 8.6 MG TAB PO SCH (09:02)
[2018-03-20] MEDS: LEVOFLOXACIN 250 MG PREMIX INJ 50 ML IV SCH (09:02)
[2018-03-20] MEDS: ASPIRIN 81 MG CHEW TAB OG-TUBE SCH (09:02)
[2018-03-20] MEDS: NYSTATIN 100,000 U/GM PWD 15 GM BTL TOPICAL SCH (09:03)
[2018-03-20] MEDS: CHLORHEXIDINE 0.12% (ORAL KIT) 15 ML CUP MT SCH (09:03)
[2018-03-20] MEDS: ARTIFICIAL TEARS OPTH SOLN 15 ML BTL EACH EYE SCH ×2 (09:04→12:53)
[2018-03-20] MEDS: SODIUM CHLORIDE 0.9% FLUSH 10 ML FLUSH IV FLUSH SCH (09:04)
--- NOTE | 2018-03-20 10:15 | PD.CONS ---
Consult Service Palliative Care . Consult Requested By Dr. Mansfield . Primary Care Physician Unknown . Reason for Consultation a. To assist with evaluation and management of symptoms including: dyspnea, pain. b. To assist medical decision maker(s) with: better understanding of current medical conditions; weighing benefits/burdens of medical treatment options; making medical treatment decisions. . HPI History of Present Illness Ms. 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 Patient has had 3 acute care hospitalizations since December at [facility]. Most recent hospitalization patient was admitted with CHF exacerbation. Patient was brought to [facility] emergency department via [facility] after being found unresponsive on 03/18/18. Upon EMS arrival patient was unresponsive, pulseless in PEA arrest. Patient was given 2 mg of epinephrine and 1 sodium bicarb with return of spontaneous circulation. Patient was intubated in the field. Upon arrival to the emergency department: * VS: Temp 96, pulse 75, respirations 16, BP 85/54 * WBC 6.0, hemoglobin 9.3, hematocrit 29.9, platelet count 183, neutrophil 68.5% * PT 11.7, INR 1.2, PTT 24.4 * BUN 20, creatinine 1.21, glucose 165, calcium 9.1, magnesium 2.0, sodium 137, potassium 4.2, chloride 90, carbon dioxide 37.1, GFR 42 * Troponin 0.44 * BNP 735 * EKG-atrial fibrillation, right bundle branch block, left anterior fascicular block * CT head -no acute intracranial abnormality, right maxillary sinus opacification. * CXR -mild basilar airspace disease, right greater than left, postoperative CABG with cardiomegaly. * CTA -negative for pulmonary embolus, small right effusion and trace left liver fluid with subsegmental atelectasis in both lungs, mild emphysema, severe coronary artery calcifications. * Urinalysis -positive urine bacteria, mucus and protein, no growth in 48 hours. Patient was admitted to ICU post PEA arrest on mechanical ventilation. Family elected DNR status. Neurology was consulted at family's request for further prognostication. Dr. Washburn, neurology was consulted for severe anoxic encephalopathy. EEG ordered, results pending. Palliative care is consulted to assist with further clarification of treatment goals. . Function/Cognitive Trajectory Family reports significant trajectory of decline since patient fractured left arm in December. Patient has been living at home in an apartment but family takes turns staying with her, they also have a hired PEDIATRIC ONCOLOGIST. Home health with PT has also recently been visiting the patient. . Review of Systems ROS Limitations: Intubated, Unresponsive Constitutional: COMPLAINS OF: Fatigue, Change in appetite, Generalized weakness Eyes: COMPLAINS OF: Blurred vision (wears glasses) Ears, nose, mouth, throat: COMPLAINS OF: Hearing loss Respiratory: COMPLAINS OF: Shortness of breath Cardiovascular: COMPLAINS OF: Dyspnea on Exertion Genitourinary: DENIES: Abnormal vaginal bleeding, Dysmenorrhea, Dyspareunia, Sexual dysfunction, Urinary frequency, Urinary incontinence, Urgency, Hematuria , Dysuria, Nocturia, Vaginal discharge, Hesitancy, Dribbling, Decreased stream Musculoskeletal: COMPLAINS OF: Joint pain Hematologic/Lymphatics: COMPLAINS OF: Bruising Neurologic: COMPLAINS OF: Poor Balance Psychiatric: COMPLAINS OF: Anxiety Other ROS: ROS per family report. Past Family Social History Coded Allergies: penicillin G (Unverified Allergy, Severe, HIVES, 03/18/18) doxycycline (Unverified Allergy, Mild, Swelling, 03/18/18) lips became swollen and she had to take benedryl to treat the inflammation. minocycline (Unverified Allergy, Mild, Swelling, 03/18/18) lips became swollen and she had to take benedryl to treat the inflammation. tigecycline (Unverified Allergy, Mild, Swelling, 03/18/18) lips became swollen and she had to take benedryl to treat the inflammation. 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 Past Surgical History Hip replacement CABG . Reported Medications Reported Meds & Active Scripts Active Reported B Complex (B-Complex Vitamins) 1 Cap 1 Cap PO DAILY Coq-10 (Coenzyme Q10 (Ubidecarenone)) 30 Mg Cap Aspir-Low (Aspirin) 81 Mg Tabdr Multiple Vitamin 1 Tab 1 Tab PO DAILY Vitamin C (Ascorbic Acid) 250 Mg Chew 250 Mg CHEW DAILY Levothyroxine (Levothyroxine Sodium) 75 Mcg Tab 75 Mcg PO DAILY Furosemide 40 Mg Tab 40 Mg PO BID Carvedilol 3.125 Mg Tab 3.125 Mg PO BID . Current Medications Medications (Trade) Dose Ordered Sig/Hayder Route Start Time Stop Time Status Last Admin (Brethine Inj) 1 mg UNSCH PRN SQ 03/18/18 04:00 Norepinephrine Bitartrate 250 ml @ 7.5 mls/hr TITRATE PRN IV 03/18/18 04:15 03/18/18 04:13 Sodium Chloride 1,000 ml @ 84 mls/hr [id number] IV 03/18/18 04:31 03/20/18 04:11 (NS Flush) 2 ml UNSCH PRN IV FLUSH 03/18/18 04:45 03/20/18 09:04 (NS Flush) 2 ml BID IV FLUSH 03/18/18 09:00 03/20/18 09:04 (Tylenol) 650 mg Q6H PRN PO 03/18/18 04:45 03/18/18 21:57 (Morphine Inj) 2 mg Q2H PRN IV PUSH 03/18/18 04:45 (Versed Inj) 2 mg Q1H PRN IV PUSH 03/18/18 04:45 03/18/18 04:57 (Tears Naturale Opth Soln) 1 drop TID EACH EYE 03/18/18 09:00 03/20/18 09:04 (Zofran Odt) 4 mg Q6H PRN PO 03/18/18 04:45 (Heparin Inj) 5,000 units Q8H SQ 03/18/18 05:00 03/20/18 05:36 ([place] Nursing Information) 1 [id number] XX 03/18/18 04:45 03/18/18 04:45 (Chlorhexidine 2% Cloth) 3 pack Taper DAILY@04 TOP 03/19/18 04:00 03/15/19 03:59 03/20/18 03:23 (Chlorhexidine 2% Cloth) 3 pack UNSCH PRN TOP 03/18/18 04:45 (Hawa-Colace) 1 tab BID PO 03/18/18 09:00 03/20/18 09:02 (Milk Of Magnesia Liq) 30 ml Q12H PRN PO 03/18/18 04:45 (Senokot) 17.2 mg Q12H PRN PO 03/18/18 04:45 (Dulcolax Supp) 10 mg DAILY PRN RECTAL 03/18/18 04:45 (Lactulose Liq) 30 ml DAILY PRN PO 03/18/18 04:45 (Peridex 0.12% Liq) 15 ml BID@08,20 MT 03/18/18 08:00 03/20/18 09:03 Propofol 100 ml @ 1.95 mls/hr TITRATE PRN IV 03/18/18 04:45 03/20/18 08:00 (Synthroid) 75 mcg DAILY@0600 PO 03/18/18 09:00 03/20/18 05:36 (Aspirin Chew) 81 mg DAILY OG-TUBE 03/18/18 09:00 03/20/18 09:02 (Apresoline Inj) 10 mg Q4H PRN IV PUSH 03/18/18 08:15 03/20/18 09:04 (Duoneb Neb) 1 ampule Q4HR NEB NEB 03/18/18 12:00 03/20/18 07:55 (Albuterol Neb) 2.5 mg Q2HR NEB PRN NEB 03/18/18 09:15 Levofloxacin/ Dextrose 50 ml @ 100 mls/hr Q24H IV 03/19/18 10:00 03/20/18 09:02 Potassium Chloride 100 ml @ 50 mls/hr Q2H PRN IV 03/19/18 07:00 Potassium Chloride 100 ml @ 50 mls/hr Q2H PRN IV 03/19/18 07:00 03/20/18 09:01 (K-Lyte Cl Eff) 50 meq UNSCH PRN PO 03/19/18 07:00 Potassium Chloride 100 ml @ 25 mls/hr UNSCH PRN IV 03/19/18 07:00 Potassium Chloride 100 ml @ 50 mls/hr Q2H PRN IV 03/19/18 07:00 Magnesium Sulfate 4 gm/Sodium Chloride 100 ml @ 50 mls/hr UNSCH PRN IV 03/19/18 07:00 (Mag-Ox) 800 mg UNSCH PRN PO 03/19/18 07:00 Magnesium Sulfate 2 gm/Sodium Chloride 100 ml @ 50 mls/hr UNSCH PRN IV 03/19/18 07:00 (K-Phos) 2,000 mg Q4H PRN PO 03/19/18 07:00 Sodium Phosphate 30 mmol/Sodium Chloride 250 ml @ 42 mls/hr UNSCH PRN IV 03/19/18 07:00 (K-Phos) 2,000 mg UNSCH PRN PO/TUBE 03/19/18 07:00 Potassium Phosphate 30 mmol/ Sodium Chloride 260 ml @ 42 mls/hr UNSCH PRN IV 03/19/18 07:00 (Pepcid Inj) 10 mg Q12HR IV PUSH 03/19/18 21:00 03/20/18 09:01 (Mycostatin Powder) 1 applic Q12HR TOPICAL 03/19/18 10:00 03/20/18 09:03 (Lopressor) 25 mg Q12HR PO 03/20/18 09:00 03/20/18 09:02 (D50w (Vial) Inj) 50 ml UNSCH PRN IV PUSH 03/20/18 08:00 (Glucagon Inj) 1 mg UNSCH PRN OTHER 03/20/18 08:00 (NovoLIN R SUPPLEMENTAL SCALE) 1 Q6H SQ 03/20/18 08:00 Family History Mother 101 dementia. Father age 76 CHF. 1 daughter of breast cancer age 49. 1 daughter of stomach cancer in 46. . Substance Use Tobacco:unknown. Alcohol: none. Prescription med abuse: none. Illicits: none. . Psychosocial History Single. Had 1 son and 6 daughters. 2 daughters . Spiritual/Cultural Factors Orthodoxy riya. . Living Will: Copy in medical record Health Care Surrogate: Copy in medical record Health Care Surrogate(s): Patient is not capacitated to make her own health care decisions, will not regain capacity due to anoxic brain injury. Designated [facility] son, Alex Cross and micheal Holly. Documented care wishes: Standard living will. . Today's verbally stated goals: Patient is not capacitated to make her own health care decisions, will not regain capacity due to anoxic brain injury. Family/friends goals: Family elected to transition to comfort measures with withdrawal of life support. . Ethical and Legal Issues Patient is not capacitated to make her own health care decisions, will not regain capacity due to anoxic brain injury. Designated [facility] darek, Alex Cross and micheal Holly. Physical Exam Vital Signs Date Time Temp Pulse Resp B/P (MAP) Pulse Ox O2 Delivery O2 Flow Rate FiO2 03/20/18 07:55 98 35 03/20/18 06:00 93 03/20/18 04:29 96 35 03/20/18 04:00 98.9 101 16 155/76 (102) 94 03/20/18 04:00 35 03/20/18 04:00 101 03/20/18 02:00 94 03/20/18 00:00 35 03/20/18 00:00 99.2 98 16 158/70 (99) 95 03/20/18 00:00 98 03/19/18 23:51 97 35 03/19/18 22:00 105 03/19/18 20:00 35 03/19/18 20:00 98.6 107 16 179/79 (112) 95 03/19/18 20:00 107 03/19/18 19:45 98 35 03/19/18 18:00 104 03/19/18 16:01 97 35 03/19/18 16:00 106 03/19/18 16:00 35 03/19/18 16:00 98.7 106 16 140/71 (94) 95 03/19/18 14:00 106 03/19/18 12:00 35 03/19/18 12:00 104 03/19/18 12:00 98.9 104 16 158/67 (97) 96 03/19/18 11:58 95 35 03/19/18 10:00 98 Exam CONSTITUTIONAL/GENERAL: This is an elderly, critically ill patient, in no apparent distress. TUBES/LINES/DRAINS: ETT, OG, PIV, bilateral soft wrist restraints, Delgado, SCDs. SKIN: No jaundice, rashes, or lesions. Ecchymoses on upper and lower extremities. No wounds seen anteriorly. Skin temperature appropriate. Not diaphoretic. HEAD: Atraumatic. Normocephalic. EYES: Pupils pinpoint, sluggish. ENT: Hard of Hearing. Nose without bleeding or purulent drainage. Throat difficult to visualize due to tubes. NECK: Trachea midline. Supple, nontender. CARDIOVASCULAR: irregularly irregular. RESPIRATORY/CHEST: Diminished breath sounds. GASTROINTESTINAL: Abdomen soft, non-tender, nondistended. No hepato-splenomegaly , or palpable masses. No guarding. Bowel sounds present. GENITOURINARY: Without palpable bladder distension. Delgado catheter in place. MUSCULOSKELETAL: Extremities with edema. No mottling or clubbing. LYMPHATICS: No palpable cervical or supraclavicular adenopathy. NEUROLOGICAL: Unresponsive. Eyes open, Does not blink to threat. Slight withdraw to noxious stimuli bilateral LEs. No other response to pain. + cough and gag. PSYCHIATRIC: Unresponsive. . Diagnostic Tests Laboratory Laboratory Tests Test 03/18/18 03:45 03/18/18 05:37 03/18/18 07:00 03/18/18 08:20 White Blood Count 6.0 TH/MM3 (4.0-11.0) Red Blood Count 3.10 MIL/MM3 (4.00-5.30) Hemoglobin 9.3 GM/DL (11.6-15.3) Hematocrit 29.9 % (35.0-46.0) Mean Corpuscular Volume 96.5 FL (80.0-100.0) Mean Corpuscular Hemoglobin 30.1 PG (27.0-34.0) Mean Corpuscular Hemoglobin Concent 31.2 % (32.0-36.0) Red Cell Distribution Width 14.5 % (11.6-17.2) Platelet Count 183 TH/MM3 (150-450) Mean Platelet Volume 8.8 FL (7.0-11.0) Neutrophils (%) (Auto) 68.5 % (16.0-70.0) Lymphocytes (%) (Auto) 21.2 % (9.0-44.0) Monocytes (%) (Auto) 8.5 % (0.0-8.0) Eosinophils (%) (Auto) 1.4 % (0.0-4.0) Basophils (%) (Auto) 0.4 % (0.0-2.0) Neutrophils # (Auto) 4.1 TH/MM3 (1.8-7.7) Lymphocytes # (Auto) 1.3 TH/MM3 (1.0-4.8) Monocytes # (Auto) 0.5 TH/MM3 (0-0.9) Eosinophils # (Auto) 0.1 TH/MM3 (0-0.4) Basophils # (Auto) 0.0 TH/MM3 (0-0.2) CBC Comment AUTO DIFF Differential Total Cells Counted 100 Neutrophils % (Manual) 65 % (16-70) Band Neutrophils % 3 % (0-6) Lymphocytes % 16 % (9-44) Monocytes % 12 % (0-8) Eosinophils % 3 % (0-4) Neutrophils # (Manual) 4.1 TH/MM3 (1.8-7.7) Myelocytes 1 % (0-0) Differential Comment FINAL DIFF MANUAL Platelet Estimate NORMAL (NORMAL) Platelet Morphology Comment NORMAL (NORMAL) Basophilic Stippling MOD (NORMAL) Ovalocytes 1+ (NORMAL) Prothrombin Time 11.7 SEC (9.8-11.6) Prothromb Time International Ratio 1.2 RATIO Activated Partial Thromboplast Time 24.4 SEC (24.3-30.1) Blood Urea Nitrogen 20 MG/DL (7-18) Creatinine 1.21 MG/DL (0.50-1.00) Random Glucose 165 MG/DL (74-106) Calcium Level 9.1 MG/DL (8.5-10.1) Magnesium Level 2.0 MG/DL (1.5-2.5) Sodium Level 137 MEQ/L (136-145) Potassium Level 4.2 MEQ/L (3.5-5.1) Chloride Level 90 MEQ/L (98-107) Carbon Dioxide Level 37.1 MEQ/L (21.0-32.0) Anion Gap 10 MEQ/L (5-15) Estimat Glomerular Filtration Rate 42 ML/MIN (>89) Troponin I 0.44 NG/ML (0.02-0.05) B-Type Natriuretic Peptide 735 PG/ML (0-100) Urine Color YELLOW (YELLW/STRAW) Urine Turbidity CLEAR (CLEAR) Urine pH 5.5 (5.0-8.5) Urine Specific [place] 1.013 (1.002-1.035) Urine Protein 30 mg/dL (NEG-TRACE) Urine Glucose (UA) NEG mg/dL (NEG) Urine Ketones NEG mg/dL (NEG) Urine Occult Blood NEG (NEG) Urine Nitrite NEG (NEG) Urine Bilirubin NEG (NEG) Urine Urobilinogen LESS THAN 2.0 MG/DL (LESS Urine Leukocyte Esterase NEG (NEG) Urine RBC 1 /hpf (0-3) Urine WBC 5 /hpf (0-5) Urine Squamous Epithelial Cells <1 /hpf (0-5) Urine Bacteria RARE /hpf (NONE) Urine Hyaline Casts 10 /lpf (RARE) Urine Mucus FEW /lpf (OCC) Microscopic Urinalysis Comment CATH-CULTURE IND Nasal Screen MRSA (PCR) MRSA DETECTED (NOT DETECT) Blood Gas Puncture Site LT RADIAL Blood Gas Patient Temperature 98.6 Blood Gas HCO3 41 mmol/L (22-26) Blood Gas Base Excess 16.1 mmol/L (-2-2) Blood Gas Oxygen Saturation 97 % (90-100) Arterial Blood pH 7.46 (7.380-7.420) Arterial Blood Partial Pressure CO2 58 mmHg (38-42) Arterial Blood Partial Pressure O2 175 mmHg (61-120) Arterial Blood Oxygen Content 12.1 Vol % (12.0-20.0) Arterial Blood Carboxyhemoglobin 1.4 % (0-4) Arterial Blood Methemoglobin 1.2 % (0-2) Blood Gas Hemoglobin 8.6 G/DL (12.0-16.0) Oxygen Delivery Device VENTILATOR Blood Gas Ventilator Setting [facility]/AC500/16 Blood Gas Inspired Oxygen 50 % Test 03/18/18 10:21 03/18/18 10:52 03/18/18 15:58 03/19/18 03:22 Nasal Screen MRSA (PCR) MRSA DETECTED (NOT DETECT) Troponin I 2.00 NG/ML (0.02-0.05) 1.81 NG/ML (0.02-0.05) White Blood Count 7.1 TH/MM3 (4.0-11.0) Red Blood Count 2.68 MIL/MM3 (4.00-5.30) Hemoglobin 8.1 GM/DL (11.6-15.3) Hematocrit 24.8 % (35.0-46.0) Mean Corpuscular Volume 92.4 FL (80.0-100.0) Mean Corpuscular Hemoglobin 30.2 PG (27.0-34.0) Mean Corpuscular Hemoglobin Concent 32.7 % (32.0-36.0) Red Cell Distribution Width 14.5 % (11.6-17.2) Platelet Count 152 TH/MM3 (150-450) Mean Platelet Volume 8.7 FL (7.0-11.0) Neutrophils (%) (Auto) 72.2 % (16.0-70.0) Lymphocytes (%) (Auto) 10.3 % (9.0-44.0) Monocytes (%) (Auto) 17.2 % (0.0-8.0) Eosinophils (%) (Auto) 0.0 % (0.0-4.0) Basophils (%) (Auto) 0.3 % (0.0-2.0) Neutrophils # (Auto) 5.1 TH/MM3 (1.8-7.7) Lymphocytes # (Auto) 0.7 TH/MM3 (1.0-4.8) Monocytes # (Auto) 1.2 TH/MM3 (0-0.9) Eosinophils # (Auto) 0.0 TH/MM3 (0-0.4) Basophils # (Auto) 0.0 TH/MM3 (0-0.2) CBC Comment DIFF FINAL Differential Comment Prothrombin Time 13.1 SEC (9.8-11.6) Prothromb Time International Ratio 1.3 RATIO Activated Partial Thromboplast Time 28.5 SEC (24.3-30.1) Blood Urea Nitrogen 24 MG/DL (7-18) Creatinine 1.27 MG/DL (0.50-1.00) Random Glucose 84 MG/DL (74-106) Total Protein 6.0 GM/DL (6.4-8.2) Albumin 2.7 GM/DL (3.4-5.0) Calcium Level 8.5 MG/DL (8.5-10.1) Phosphorus Level 1.9 MG/DL (2.5-4.9) Magnesium Level 1.6 MG/DL (1.5-2.5) Alkaline Phosphatase 76 U/L (45-117) Aspartate Amino Transf (AST/SGOT) 37 U/L (15-37) Alanine Aminotransferase (ALT/SGPT) 28 U/L (10-53) Total Bilirubin 0.6 MG/DL (0.2-1.0) Sodium Level 141 MEQ/L (136-145) Potassium Level 3.4 MEQ/L (3.5-5.1) Chloride Level 97 MEQ/L (98-107) Carbon Dioxide Level 34.2 MEQ/L (21.0-32.0) Anion Gap 10 MEQ/L (5-15) Estimat Glomerular Filtration Rate 40 ML/MIN (>89) Test 03/20/18 06:37 White Blood Count 8.3 TH/MM3 (4.0-11.0) Red Blood Count 2.78 MIL/MM3 (4.00-5.30) Hemoglobin 8.4 GM/DL (11.6-15.3) Hematocrit 25.6 % (35.0-46.0) Mean Corpuscular Volume 92.4 FL (80.0-100.0) Mean Corpuscular Hemoglobin 30.2 PG (27.0-34.0) Mean Corpuscular Hemoglobin Concent 32.7 % (32.0-36.0) Red Cell Distribution Width 15.0 % (11.6-17.2) Platelet Count 145 TH/MM3 (150-450) Mean Platelet Volume 8.8 FL (7.0-11.0) Neutrophils (%) (Auto) 81.3 % (16.0-70.0) Lymphocytes (%) (Auto) 6.5 % (9.0-44.0) Monocytes (%) (Auto) 11.6 % (0.0-8.0) Eosinophils (%) (Auto) 0.4 % (0.0-4.0) Basophils (%) (Auto) 0.2 % (0.0-2.0) Neutrophils # (Auto) 6.7 TH/MM3 (1.8-7.7) Lymphocytes # (Auto) 0.5 TH/MM3 (1.0-4.8) Monocytes # (Auto) 1.0 TH/MM3 (0-0.9) Eosinophils # (Auto) 0.0 TH/MM3 (0-0.4) Basophils # (Auto) 0.0 TH/MM3 (0-0.2) CBC Comment DIFF FINAL Differential Comment Blood Urea Nitrogen 22 MG/DL (7-18) Creatinine 1.07 MG/DL (0.50-1.00) Random Glucose 88 MG/DL (74-106) Calcium Level 8.4 MG/DL (8.5-10.1) Sodium Level 143 MEQ/L (136-145) Potassium Level 2.9 MEQ/L (3.5-5.1) Chloride Level 102 MEQ/L (98-107) Carbon Dioxide Level 28.6 MEQ/L (21.0-32.0) Anion Gap 12 MEQ/L (5-15) Estimat Glomerular Filtration Rate 48 ML/MIN (>89) Result Diagram: 03/20/18 0637 03/20/18 0637 Microbiology Microbiology Date/Time Source Procedure Growth Status 03/18/18 05:37 Urine Catheterized Urine Urine Culture - Final NO GROWTH IN 48 HOURS. Complete Imaging Last Impressions Head CT 03/18/18 0000 Signed Impressions: CONCLUSION: 1. No acute intracranial abnormality. Right maxillary sinus opacification. Chest X-Ray 03/18/18 Signed Impressions: CONCLUSION: Endotracheal tube and nasogastric tube in good position. Mild basilar airspace disease, right greater than left. Postoperative CABG with cardiomegaly present. CT Angiography 03/18/18 Signed Impressions: CONCLUSION: 1. Negative for pulmonary embolus. 2. Endotracheal tube tip just above the gurwinder. NG enters stomach. 3. Small right effusion and trace left pleural fluid with subsegmental atelect asis in both lungs. Mild emphysema. 4. Severe coronary calcifications. . Procedures * 03/18/18 -PEA arrest, intubated. Patient/Family Conference Present at Family Conference: Met with son/ HCS (Klever), daughters (Paula, Priscilla, Elodia, Autumn), DIL (Anna), grandson (Tito), granddaughters (Temitope and Rita). . Family Conference Time (mins): 90 Family Conference Location: Consult Room Issues Discussed: * Palliative care role, purpose, approach * Additional medical, psychosocial, and spiritual history * Patients general health, functional status, and cognitive changes in the months leading up to the current hospitalization * Patient/family understanding of the current medical problems * Patient/family understanding of prognosis * Patients goals of care as best understood from advance directives and/or conversations and/or values * Current medical treatment options and benefits/burdens of those options * Likely scenarios comparing ongoing aggressive care with a transition to comfort measures only * Questions answered to the best of my ability * Palliative care contact information provided Family reviewed Living Will paperwork. Medical update provided. Lengthy conversation about underbuying COPD/CHF. We reviewed anoxic injury post PEA arrest and possible extermination inspector effects. Family is all certain patient would not find any quality of life less than what she had prior to admission would not be acceptable. Family is considering transition to comfort, they would like to speak with their claims investigator. They are leaning toward transition to comfort, timing to be determined. 2pm: Call from family and nurse to report they would like to proceed with transition to comfort with compassionate withdrawal of life support today at 4pm. 3:15pm: Spoke with sonKlever at bedside. He again confirms plan to transition to comfort. Awaiting arrival of family. Orders written. Exhibits B & C on chart , signed. . Assessment and Plan Disease Oriented Problem List: (1) PEA (Pulseless electrical activity) (2) Anoxic encephalopathy (3) Acute hypercapnic respiratory failure (4) COPD (chronic obstructive pulmonary disease) (5) Emphysema lung (6) Chronic systolic heart failure (7) Acute kidney injury (8) Atrial fibrillation (9) NSTEMI (non-ST elevated myocardial infarction) (10) Chronic iron deficiency anemia (11) Hypothyroidism Symptom Scale: (1) Pain 0-10 Scale: Unable to quantify (2) Dyspnea 0-10 Scale: Unable to quantify Pertinent Non-Medical Issues Psychosocial: Single. Has 5 children. Spiritual: Orthodoxy riya. Legal: Ethical issues impacting care: No known concerns at this time. . Important Contacts * Jaelyn Mclean, daughter: [phone] * Priscilla Mullen, daughter: [phone] . Prognosis Patient with developing progressive CO2 retention at home as a side effect of aggressive diuresis for advanced heart failure. Multiple hospitalizations in the last few months demonstrate trajectory of decline. Her condition is end- stage. . Code Status: No Code Plan * Decision Maker: Patient is not capacitated to make her own health care decisions, will not regain capacity due to anoxic brain injury. Designated HCS son, Alex Cross and alternate Paula Holly. * NO CODE * Palliative care met with patient/ family: Family all in agreement (5 children , DIL and 3 grandchildren) have decided to transition to comfort focused care with compassionate withdrawal of life support today 4pm. Anticipatory guidance provided. Declined hospice at this time, will consider in AM if patient survives. Family clergy at bedside. * Exhibits B & C signed on chart. * SYMPTOMS: Orders written for comfort measures and withdrawal of life support. Reviewed with nurse. * Discussed with Dr. Goldman and Dr. Goodman. * Palliative care number provided. * Palliative care will continue to follow throughout hospital course to assist with symptom management and clarification of goals as needed. . Thank you for the opportunity to participate in the care of Ms. Cevallos. Attestation To help prompt me to consider important information that might be impacting today's encounter and assessment, information from prior notes written by myself or my colleagues may have been "brought forward" into today's note. My signature on this note, however, is an attestation that I personally performed the exam, history, and/or decision-making noted today, and, unless otherwise indicated, the interactions with patient, family, and staff as well as the review of records all occurred today. I also attest that the listed assessment and stated plan reflect my best clinical judgment today based on the combination of historical information, prior notes, and today's exam/ interactions. When time spent is documented, it refers only to time spent today by the signer, or if indicated, combined time spent today by collaborating physician/nurse practitioner. . Brenda Mccarthy Mar 20, 2018 10:15
--- NOTE | 2018-03-20 11:15 | MG ---
cc: Wayne Washburn MD, PhD EEG NUMBER: [id number]. TECHNIQUE: This is a 17-channel EEG. DESCRIPTION: The background rhythm is abnormal. There is diffuse slowing in the delta frequency. There is also bilateral PLEDs, i.e., periodic lateralizing epileptiform discharges occurring with a frequency of every 1-5 seconds. No lateralizing features are identified. INTERPRETATION: Markedly abnormal study with bilateral PLEDs consistent with a severe anoxic encephalopathy. Wayne Washburn MD, PhD PING/DL , 11:08 AM , 11:15 AM
[2018-03-20 13:52] LABS: MAGNESIUM 2.2 MG/DL (1.5-2.5); PHOSPHORUS 3.3 MG/DL (2.5-4.9)
[2018-03-20] MEDS ORDERED: LORazepam 2 MG/ML VIAL IV PUSH ONE ×2 (15:45→16:00)
[2018-03-20] MEDS ORDERED: MORPHINE SULFATE 8 MG/ML INJ IV PUSH ONE (15:45)
[2018-03-20] MEDS ORDERED: HYOSCYAMINE 0.5 MG/ML AMP IV PUSH ONE (15:45)
[2018-03-20] MEDS ORDERED: MORPHINE SULFATE 4 MG/ML INJ IV PUSH ONE (16:00)
[2018-03-20] MEDS ORDERED: MORPHINE SULFATE 4 MG/ML INJ IV PUSH PRN (16:15)
[2018-03-20] MEDS ORDERED: HYOSCYAMINE 0.5 MG/ML AMP IV PUSH PRN (16:15)
[2018-03-20] MEDS ORDERED: MORPHINE SULFATE 8 MG/ML INJ IV PUSH PRN (16:15)
[2018-03-20] MEDS ORDERED: LORazepam 2 MG/ML VIAL IV PUSH PRN ×3 (16:15)
[2018-03-20] MEDS ORDERED: FUROSEMIDE 20 MG/2 ML VIAL IV PUSH PRN (16:15)
[2018-03-20] MEDS ORDERED: MORPHINE SULFATE 4 MG/ML INJ IV PUSH SCH (20:00)
[2018-03-20] MEDS ORDERED: LORazepam 2 MG/ML VIAL IV PUSH SCH (20:00)
== END 2018-03-20 17:04 | disposition expired | DRG 208 ==
LOC: NEPC 03:16 → NEDA 04:35 → HIME 06:35
PROVIDERS: ADMIT Internal Medicine Critical Care Medicine; ATTEND Internal Medicine Critical Care Medicine
PROC: 5A1945Z Respiratory Ventilation, 24-96 Consecutive Hours (ICD-10-PCS; principal; 2018-03-18)
DX: J96.02 Acute respiratory failure with hypercapnia (principal); I46.9 Cardiac arrest, cause unspecified; G93.1 Anoxic brain damage, not elsewhere classified; N17.9 Acute kidney failure, unspecified; I50.22 Chronic systolic (congestive) heart failure; I45.2 Bifascicular block; I11.0 Hypertensive heart disease with heart failure; D50.0 Iron deficiency anemia secondary to blood loss (chronic); F41.9 Anxiety disorder, unspecified; J43.9 Emphysema, unspecified; E03.9 Hypothyroidism, unspecified; I25.2 Old myocardial infarction; I48.91 Unspecified atrial fibrillation; Z96.649 Presence of unspecified artificial hip joint; Z88.1 Allergy status to other antibiotic agents; Z95.1 Presence of aortocoronary bypass graft; Z88.0 Allergy status to penicillin; Z88.8 Allergy status to other drugs, medicaments and biological substances; Z95.4 Presence of other heart-valve replacement; Z87.891 Personal history of nicotine dependence; Z66 Do not resuscitate
CPT/HCPCS: 36600; 70450; 71045; 71275; 80048; 80053; 81001; 82805; 83735; 83880; 84100; 84484; 85007; 85025; 85027; 85610; 85730; 87086; 87641; 93005; 94002; 94003; 94640; 94664; 95819; J0360; J1644; J1956; J1980; J2060; J2250; J2270; J3480; J7030; Q9967